=== PATIENT | female | born 2000 | race Caucasian/White ===

== ENCOUNTER → 2019-11-27 15:52 | Outpatient (BNVA) | payer SELFPAY | PROVIDERS: Family Provider Family Medicine; PCP Family Medicine; Visit Provider Nurse Practitioner Family | DX: J02.9 Acute pharyngitis, unspecified (principal); J01.40 Acute pansinusitis, unspecified; N92.6 Irregular menstruation, unspecified | CPT/HCPCS: 81025; 87081; 87880 ==

== ENCOUNTER 2020-07-05 00:03 | Emergency (ER) | payer SELFPAY ==
[2020-07-05 00:10] VITALS: BP 160/101; PULSE 91; RESP 18; TEMP 37.3; O2SAT 99; BMI 25.0
--- NOTE | 2020-07-05 00:19 | XR_ITS ---
WS: [id number] EXAM: AP CHEST: PORTABLE UPRIGHT DATE OF EXAM: 07/05/2020, 1242 hours COMPARISON: Chest x-ray from 11/23/2018 HISTORY: Patient is 20 years old with cough and fever. FINDINGS: The cardiac silhouette is normal in size. The mediastinal contours are normal. The pulmonary vas cularity is normal. The lungs are clear of infiltrate. There is no effusion or pneumothorax. No ac cruz bony abnormality is seen. XR/XR chest 1V portable [id number] IMPRESSION: No acute pulmonary disease.
--- NOTE | 2020-07-05 00:33 | ED_ITS ---
HPI - Nausea/Vomiting/Diarrhea General: Chief complaint: Nausea/Vomiting/Diarrhea Stated complaint: possible covid Time Seen by Provider: 07/05/20 00:14 History of Present Illness: HPI Narrative: 20-year-old female patient presents to the emergency department with nausea vomiting x24 hours. She reports vomiting has subsided, continues with nausea. She reports has been able to eat and drink today without vomiting. 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 She reports headache with chills, muscle aches and cough. MD elicited complaint: nausea, vomiting and abdominal pain Onset (ago): day(s) (1) Associated nausea: Yes Location of pain: Diffuse Pain consistency: intermittent (With nausea) Quality: aching Relieving factors: vomiting Context: sick contacts Associated symtoms: Reports cough, fatigue, fevers/chills, headache(s) and nausea; Denies chest pain, dysuria or palpitations Treatment prior to arrival: analgesics (Tylenol, improved headache) and NSAIDs Review of Systems General: Reports: 10 or more systems reviewed and unremarkable except in HPI and below Const: Reports: fever(s), chills, body aches and fatigue Eyes: Denies: blurry vision or eye redness ENMT: Denies: throat pain, dental pain or disequilibrium Card: Denies: chest pain, palpitations or irregular heart rhythm Resp: Reports: non-productive cough; Denies: dyspnea, productive cough or wheezing GI: Reports: abdominal pain, nausea and vomiting (Resolved) : Denies: difficulty voiding or dysuria Musc: Denies: back pain Skin/Breast: Denies: rash or pruritus Neuro: Reports: headache(s); Denies: weakness in extremities or behavioral changes Wan/Lymph: Denies: easy bruising [facility] ED PFSH: Social History (Updated 11/27/19 @ 15:36 by Annalee Zafar LPN) Smoking and tobacco status: never smoked Alcohol intake: never Female Reproductive History: Date of last menstrual period: 06/19/20 Physical Exam Const: COMMON NORMALS: patient oriented x3 and alert GENERAL APPEARANCE: cooperative, well kempt and well hydrated NUTRITIONAL APPEARANCE: obese ORIENTATION/CONSCIOUSNESS: Yes awake, Yes oriented to person and Yes oriented to place HENMT: COMMON NORMALS: normocephalic, EAC's normal, TM's normal bilaterally, Normal external nose present and moist oral mucous membranes HEAD & SCALP: normocephalic FACE & SINUS: normal facial exam NOSE: Normal external nose present EXTERNAL AUDITORY CANAL: EAC's normal TYMPANIC MEMBRANE: TM's normal bilaterally MOUTH: Normal oral and palatal mucosa present THROAT: posterior oropharynx normal Eye: COMMON NORMALS: Equal, round and reactive pupils present and EOMs intact bilaterally GENERAL EYE: appearance normal, both eyes and all related structures PUPIL: Yes Equal, round and reactive pupils present Neck/C-Spine: COMMON NORMALS: full ROM and no lymphadenopathy GENERAL: Yes normal visual inspection and Yes trachea midline CERVICAL SPINE: Yes cervical ROM normal Lymph: LYMPHATIC: no lymphadenopathy noted Chest: COMMONS NORMALS: normal inspection of the chest Resp: COMMON NORMALS: normal respiratory effort and clear to auscultation bilaterally EFFORT & INSPECTION: Yes able to speak in complete sentences AUSCULTATION: clear to auscultation bilaterally Cardio: COMMON NORMALS: regular rhythm, S1 normal heart sound present, S2 normal heart sound present and Peripheral pulses 2+ throughout RHYTHM: regular rhythm HEART SOUNDS: S1 normal heart sound present and S2 normal heart sound present PERIPHERAL PULSES: Peripheral pulses 2+ throughout GI: COMMON NORMALS: Soft to palpation INSPECTION: Yes normal to inspection PALPATION: Yes Soft to palpation and Yes Tenderness to palpation present (GI) (epigastric - mild) Details: LUQ (mild) : COMMON NORMALS: Yes no CVA tenderness BLADDER/KIDNEY EXAM: Yes no CVA tenderness Back/Pelvis: COMMON NORMALS: no CVA tenderness and thoracic and lumbar spine normal to inspection Extremity: COMMON NORMALS: normal to inspection and capillary refill normal Neuro: COMMON NORMALS: patient oriented x3 and no focal motor deficits SENSORIUM/ORIENTATION: Yes alert, Yes oriented to person and Yes oriented to place Psych: COMMON NORMALS: mental status grossly normal, Normal thought process present and cooperative APPEARANCE: Yes well kempt ACTIVITY/MOTOR BEHAVIOR: Yes appropriate eye contact THOUGHT PROCESS: Normal thought process present Skin: COMMON NORMALS: no rashes or lesions noted and turgor normal GENERAL SKIN EXAM: no rashes or lesions noted and turgor normal Course ED course: 20-year-old female patient presents to the emergency department with possible COVID infection. 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 Patient was advised COVID results will be called to her. She agrees to go home, she was counseled to return to the emergency department if she developed inability to keep fluids down, shortness of breath or difficulty breathing. She verbalized understanding. Vital Signs: Vital signs: Vital Signs Temperature 99.1 F 07/05/20 00:10 Pulse Rate 78 07/05/20 01:36 Respiratory Rate 18 07/05/20 01:36 Blood Pressure 125/78 07/05/20 01:36 Pulse Oximetry 99 07/05/20 01:36 MDM - Nausea/Vomiting/Diarrhea Imaging Data^: Other Xray: My impression: no acute process, no findings of pneumonia, radiologist inturp pending Discharge Plan Discharge Patient Disposition: Home Clinical Impression: Gastroenteritis, Flu syndrome Condition: Stable Prescriptions: New Zofran 4 mg tablet 4 mg PO QID PRN (Reason: nausea and vomiting) Qty: 14 RF: 0 Discharge Orders: Discharge Order (Routine); Ordered 07/05/20 Ordered By: Monserrat Sabillon Referrals: Javad Dsouza MD [Primary Care Provider] - Discharge Diet: Advance as tolerated and Clear Liquid Discharge Activity: Limit activity as instructed Patient Instructions: Acute Nausea and Vomiting (ED) Activity Restrictions/Additional Instructions: Take Zofran as needed for nausea and/or vomiting every 4 hours Clear liquid diet and advance as tolerated, avoid greasy, fried, fatty foods COVID testing is in process. The emergency department will contact you in regards to results. You are to stay home and quarantine for 10 days. Return to the emergency department if you develop inability to tolerate oral fluids, difficulty breathing or worsening symptoms. 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
[2020-07-05] MEDS: ondansetron 4 MG Tablet PO (01:27)
[2020-07-05 01:36] VITALS: BP 125/78; PULSE 78; RESP 18; O2SAT 99
[2020-07-07 01:32] LABS: Quest SARS-CoV-2 RNA NOT DETECTED (NOT DETECTED)
--- NOTE | 2020-07-07 08:24 | PC.NURSE ---
Pt notified of negative COVID result.
== END 2020-07-05 02:01 | disposition home or self-care (01) ==
PROVIDERS: Emergency Provider Nurse Practitioner Family; PCP Family Medicine
DX: K52.9 Noninfective gastroenteritis and colitis, unspecified (principal); J11.1 Influenza due to unidentified influenza virus with other respiratory manifestations
CPT/HCPCS: 12345; 71045; 87635; 99282; 99283; Q0162

== ENCOUNTER → 2020-11-19 16:55 | Outpatient (BNVA) | payer OTHER, SELFPAY | PROVIDERS: PCP Family Medicine; Visit Provider Emergency Medicine | DX: Z20.822 Contact with and (suspected) exposure to COVID-19 (principal) | CPT/HCPCS: 87635 ==

== ENCOUNTER 2021-02-10 01:37 | Emergency (ER) | payer SELFPAY ==
[2021-02-10 01:44] VITALS: BP 140/94; PULSE 125; RESP 15; TEMP 36.8; O2SAT 99; BMI 38.2
--- NOTE | 2021-02-10 01:54 | W.ED.ABDPA2 ---
HPI - Abdominal Pain General: Chief Complaint: Abdominal Pain Stated Complaint: N/V/ABD PAIN Time Seen by Provider: 02/10/21 01:39 History of Present Illness: HPI narrative: Patient is a 20-year-old female comes to the ED with abdominal pain, nausea and vomiting. Patient says symptoms started earlier today. Patient symptoms started first with nausea and vomiting. She has had approximately 3 episodes of emesis and started developing abdominal pain. she has not been able to keep anything down today since start of symptoms. The abdominal pain she rates currently a 6 out of 10. Its located in the left upper quadrant. She took some [id number] ibuprofen at 11 PM tonight. Denies any fever, chills, upper respiratory symptoms, constipation, diarrhea, blood in the stool, dysuria, hematuria. Patient says her last menstrual period was January 15. Denies any abdominal surgical history. Associated Symptoms: Reports nausea and vomiting; Denies chills, constipation, diarrhea, dysuria, fever(s), hematochezia and hematuria Related Data: Date of Last Menstrual Period: 01/15/21 Review of Systems Const: Denies: fever(s), chills or fatigue Eyes: Denies: change in vision or eye discomfort ENMT: Denies: throat pain, odynophagia, nasal discharge or nasal congestion Card: Denies: chest pain, palpitations, edema, swelling of feet/ankles, dyspnea on exertion or orthopnea Resp: Denies: dyspnea, productive cough or non-productive cough GI: Reports: abdominal pain, nausea and vomiting; Denies: diarrhea, constipation or hematochezia : Denies: flank pain, dysuria or hematuria Musc: Denies: neck pain, back pain or extremity swelling Skin/Breast: Denies: rash or new lesions Neuro: Denies: headache(s), numbness in extremities or weakness in extremities PFSH ED PFSH: Social History Smoking and tobacco status: never smoked Alcohol intake: never Female Reproductive History: Date of last menstrual period: 01/15/21 Physical Exam Const: COMMON NORMALS: no acute distress, patient oriented x3 and alert GENERAL APPEARANCE: cooperative and comfortable HENMT: COMMON NORMALS: normocephalic HEAD & SCALP: normocephalic MOUTH: Normal oral and palatal mucosa present THROAT: posterior oropharynx normal and uvula midline Neck/C-Spine: COMMON NORMALS: supple GENERAL: Yes normal visual inspection Resp: COMMON NORMALS: normal respiratory effort, No retractions, No use of accessory muscles and clear to auscultation bilaterally AUSCULTATION: clear to auscultation bilaterally Cardio: COMMON NORMALS: regular rate, regular rhythm, S1 normal heart sound present, S2 normal heart sound present, No gallops present (Cardio), No clicks present (Cardio), No murmurs present (Cardio) and Peripheral pulses 2+ throughout RATE: regular rate RHYTHM: regular rhythm HEART SOUNDS: S1 normal heart sound present and S2 normal heart sound present PERIPHERAL PULSES: Peripheral pulses 2+ throughout GI: COMMON NORMALS: Normal to inspection, nondistended, normoactive bowel sounds present, Soft to palpation and no masses INSPECTION: Yes central obesity PALPATION: Yes Soft to palpation and Yes Tenderness to palpation present (GI) Details: LUQ (Mild left upper quadrant tenderness-generalized. No localized/point tenderness) OTHER: No signs of an acute abdomen. : COMMON NORMALS: Yes no CVA tenderness BLADDER/KIDNEY EXAM: Yes no CVA tenderness Back/Pelvis: COMMON NORMALS: no CVA tenderness Extremity: COMMON NORMALS: normal to inspection Neuro: COMMON NORMALS: patient oriented x3 SENSORIUM/ORIENTATION: Yes alert GAIT: Yes Normal gait present Skin: GENERAL SKIN EXAM: dry skin Course Reevaluation(s): Reevaluation #1: Patient was given IV fluids and Zofran while here in the ED and her symptoms improved. She was given p.o. fluids and she was able to keep them down and had no episodes of emesis while here in the ED. Time: 02:56 Vital Signs: Vital signs: Vital Signs Temperature 98.2 F 02/10/21 01:44 Pulse Rate 125 H 02/10/21 01:44 Respiratory Rate 15 02/10/21 01:44 Blood Pressure 140/94 02/10/21 01:44 Pulse Oximetry 99 02/10/21 01:44 MDM - Abdominal Pain MDM Narrative: Medical decision making narrative: Patient is a 20-year-old female comes to the ED with abdominal pain, nausea and vomiting. Patient's abdominal pain started after the nausea and multiple episodes of emesis today. Patient says symptoms started earlier today. Exam shows a 20-year-old female that sitting comfortably on exam bed when I enter the room. She appears in no acute distress or pain. She has some mild generalized tenderness in her left upper quadrant of the abdomen. No signs of an acute abdomen. Labs were unremarkable and hCG negative. Patient was given IV fluids and Zofran and Toradol and her symptoms improved. Patient was able to keep p.o. fluids down here in the ED once nausea was controlled. Patient diagnosed with viral syndrome and discharged home with a prescription for Reglan for nausea. Advance diet slowly start with clear liquids. She was told to follow-up with her PCP in 7 to 10 days for reevaluation. Return to ED precautions given. Patient understood and agreed with plan. Lab Data: Attestation: I reviewed the patient's lab results. Labs: Lab Results 02/10/21 02/10/21 02/10/21 Range/Units 02:00 02:00 02:00 WBC 10.7 H (4.0-10.0) 10^3/ uL RBC 5.55 H (4.1-5.3) 10^6/u L Hgb 15.4 H (11.5-15.3) g/dL Hct 47.3 H (37.0-47.0) % MCV 85.2 (81-99) fL MCH 27.7 L (28.0-34.0) pg MCHC 32.6 (30.0-36.0) g/dL RDW 12.7 (12.1-15.1) % Plt Count 323 (130-400) 10^3/c mm MPV 10.2 (7.4-10.4) fL Neut % (Auto) 84.5 % Lymph % (Auto) 9.7 % Fergus % (Auto) 5.1 % Eos % (Auto) 0.3 % Baso % (Auto) 0.2 % Neut # (Auto) 9.04 H (1.8-7.7) 10^3/u L Lymph # (Auto) 1.0 (0.8-4.8) 10^3/u L Fergus # (Auto) 0.6 (0.2-0.9) 10^3/u L Eos # (Auto) 0.0 (0.0-0.8) 10^3/u L Baso # (Auto) 0.0 (0.0-0.1) 10^3/u L Nucleated RBC % (a uto) 0 % Nucleated RBCs # 0.0 /100WBC Sodium 137 (136-145) mmol/L Potassium 3.9 (3.5-5.1) mmol/L Chloride 98 (98-107) mmol/L Carbon Dioxide 29 (22-29) mmol/L Anion Gap 13.9 (5-19) BUN 11 (6-20) mg/dL Creatinine 0.7 (0.5-0.9) mg/dL GFR Calculation 105.6 (90-130) mL/min Glucose 101 (65-115) mg/dL Calculated Osmolal ity 284 L (285-295) mOsm/k g Calcium 9.0 (8.5-10.5) mg/dL Total Bilirubin 0.7 (0.15-1.2) mg/dL AST 14 (0-32) U/L ALT 11 (0-33) U/L Alkaline Phosphata se 82 (35-105) IU/L Total Protein 8.3 (6.6-8.7) g/dL Albumin 4.9 (3.5-5.2) g/dL Globulin 3.4 (1.3-4.6) g/dL Lipase 35 (13-60) U/L HCG, Qual Negative (Negative) Urine Color (Yellow) Urine Appearance (CLEAR) Urine pH (5-7) Ur Specific Gravit y (1.005-1.030) Urine Protein (Negative) Urine Glucose (UA) (Normal) Urine Ketones (Negative) Urine Blood (Negative) Urine Nitrate (Negative) Urine Bilirubin (Negative) Urine Urobilinogen (Negative) mg/dL Ur Leukocyte Ashanti ase (Negative) Urine RBC (0-2) /hpf Urine WBC (0-5) /hpf Ur Squamous Epith Cells (0-5) /hpf Amorphous Sediment Urine Bacteria (NONE) /hpf Urine Mucus /hpf 02/10/21 Range/Units 02:40 WBC (4.0-10.0) 10^3/ uL RBC (4.1-5.3) 10^6/u L Hgb (11.5-15.3) g/dL Hct (37.0-47.0) % MCV (81-99) fL MCH (28.0-34.0) pg MCHC (30.0-36.0) g/dL RDW (12.1-15.1) % Plt Count (130-400) 10^3/c mm MPV (7.4-10.4) fL Neut % (Auto) % Lymph % (Auto) % Fergus % (Auto) % Eos % (Auto) % Baso % (Auto) % Neut # (Auto) (1.8-7.7) 10^3/u L Lymph # (Auto) (0.8-4.8) 10^3/u L Fergus # (Auto) (0.2-0.9) 10^3/u L Eos # (Auto) (0.0-0.8) 10^3/u L Baso # (Auto) (0.0-0.1) 10^3/u L Nucleated RBC % (a uto) % Nucleated RBCs # /100WBC Sodium (136-145) mmol/L Potassium (3.5-5.1) mmol/L Chloride (98-107) mmol/L Carbon Dioxide (22-29) mmol/L Anion Gap (5-19) BUN (6-20) mg/dL Creatinine (0.5-0.9) mg/dL GFR Calculation (90-130) mL/min Glucose (65-115) mg/dL Calculated Osmolal ity (285-295) mOsm/k g Calcium (8.5-10.5) mg/dL Total Bilirubin (0.15-1.2) mg/dL AST (0-32) U/L ALT (0-33) U/L Alkaline Phosphata se (35-105) IU/L Total Protein (6.6-8.7) g/dL Albumin (3.5-5.2) g/dL Globulin (1.3-4.6) g/dL Lipase (13-60) U/L HCG, Qual (Negative) Urine Color Yellow (Yellow) Urine Appearance Sl hazy (CLEAR) Urine pH 5 (5-7) Ur Specific Gravit y 1.015 (1.005-1.030) Urine Protein Neg (Negative) Urine Glucose (UA) Norm (Normal) Urine Ketones Negative (Negative) Urine Blood Neg (Negative) Urine Nitrate Negative (Negative) Urine Bilirubin 2+ H (Negative) Urine Urobilinogen 1 H (Negative) mg/dL Ur Leukocyte Ashanti ase 1+ H (Negative) Urine RBC 0-4 H (0-2) /hpf Urine WBC 5-10 H (0-5) /hpf Ur Squamous Epith Cells 10-15 H (0-5) /hpf Amorphous Sediment Not Reportable Urine Bacteria 1+ H (NONE) /hpf Urine Mucus 1+ /hpf Discharge Plan Discharge Patient Disposition: Home Clinical Impression: Viral gastroenteritis Condition: Stable Prescriptions: New Reglan 10 mg tablet 10 mg PO Q6H PRN (Reason: nausea and vomiting) Qty: 20 RF: 0 No Action valacyclovir 1 gram tablet 1,000 mg PO BID 5 Days Qty: 10 RF: 0 Discharge Orders: Discharge ED (Routine); Ordered 02/10/21 Ordered By: Matheus Lincoln Referrals: Javad Dsouza MD [Primary Care Provider] - Discharge Diet: Advance as tolerated and Clear Liquid Discharge Activity: Increase activity as tolerated Patient Instructions: Clear Liquid Diet (ED), Gastroenteritis (ED), Viral Syndrome (ED) Activity Restrictions/Additional Instructions: Follow-up with medical provider as directed in 7 to 10 days for reevaluation. Take medications as prescribed. Start with clear liquid diet then advance diet slowly as tolerated. Take [id number] Tylenol or Motrin for any fevers or pain. Return to the ER or your medical provider if condition worsens. Please read and understand discharge instructions. If any questions, please ask. 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
[2021-02-10] MEDS: ondansetron 2 mg/ML SDV 2 mL 4 MG IVP (02:05)
[2021-02-10] MEDS: sodium chloride 0.9% 1,000 ML 999 ML IV (02:06)
[2021-02-10 02:24] LABS: Basophils % 0.2 %; Eosinophils % 0.3 %; Hematocrit 47.3 % (37.0-47.0); Hemoglobin 15.4 g/dL (11.5-15.3); Lymphocytes % 9.7 %; Mean Corpuscular HGB Conc 32.6 g/dL (30.0-36.0); Mean Corpuscular Hemoglobin 27.7 pg (28.0-34.0); Mean Corpuscular Volume 85.2 fL (81-99); Mean Platelet Volume 10.2 fL (7.4-10.4); Monocytes # 0.6 10^3/uL (0.2-0.9); Monocytes % 5.1 %; Neutrophils # 9.04 10^3/uL (1.8-7.7); Neutrophils % 84.5 %; Nucleated Red Blood Cells % 0 %; Platelet Count 323 10^3/cmm (130-400); Red Blood Count 5.55 10^6/uL (4.1-5.3); Red Cell Distribution Width 12.7 % (12.1-15.1); White Blood Count 10.7 10^3/uL (4.0-10.0)
[2021-02-10 02:32] LABS: HCG, Serum Qual Negative (Negative)
[2021-02-10 02:39] LABS: Alanine Aminotransferase 11 U/L (0-33); Albumin Level 4.9 g/dL (3.5-5.2); Alkaline Phosphatase 82 IU/L (35-105); Anion Gap 13.9 (5-19); Aspartate Amino Transferase 14 U/L (0-32); Blood Urea Nitrogen 11 mg/dL (6-20); Carbon Dioxide 29 mmol/L (22-29); Chloride 98 mmol/L (98-107); Creatinine Clr Calc Pharmacy 152.3881; Globulin 3.4 g/dL (1.3-4.6); Glomerular Filtration Rate 105.6 mL/min (90-130); Glucose 101 mg/dL (65-115); Lipase 35 U/L (13-60); Osmolality Calculated 284 mOsm/kg (285-295); Potassium 3.9 mmol/L (3.5-5.1); Sodium 137 mmol/L (136-145); Total Bilirubin 0.7 mg/dL (0.15-1.2); Total Protein 8.3 g/dL (6.6-8.7)
[2021-02-10 03:08] LABS: Bilirubin Urine 2+ (Negative); Blood Urine Neg (Negative); Glucose Urine UA Norm (Normal); Ketones Urine Negative (Negative); Leukocyte Esterase Urine 1+ (Negative); Nitrate Urine Negative (Negative); Protein Urine Neg (Negative); Specific Gravity, Urine 1.015 (1.005-1.030); Urine Appearance SL Hazy (CLEAR); Urine Color Yellow (Yellow); Urobilinogen Urine 1 mg/dL (Negative); pH Urine 5 (5-7)
[2021-02-10] MEDS: ketorolac 30 mg/mL INJ IVP (03:08)
[2021-02-10 03:09] LABS: Bacteria Urine 1+ /hpf; Mucus Urine 1+ /hpf; RBC Urine 0-4 /hpf (0-2)
[2021-02-10 03:10] LABS: Add Urine Culture? No
[2021-02-10] MEDS: metoclopramide 5 mg/mL SDV 2 mL 10 MG IVP (03:21)
[2021-02-10 03:31] VITALS: BP 123/84; PULSE 104; O2SAT 99
== END 2021-02-10 03:31 | disposition home or self-care (01) ==
PROVIDERS: Emergency Provider Physician Assistant; PCP Family Medicine
DX: A08.4 Viral intestinal infection, unspecified (principal)
CPT/HCPCS: 80053; 81001; 83690; 84703; 85025; 96361; 96374; 96375; 99284; J1885; J2405; J2765; J7030

== ENCOUNTER → 2022-09-18 13:37 | Outpatient (BNVA) | payer OTHER, SELFPAY | PROVIDERS: PCP Family Medicine; Visit Provider Family Medicine | DX: Z34.90 Encounter for supervision of normal pregnancy, unspecified, unspecified trimester (principal); R30.0 Dysuria | CPT/HCPCS: 80307; 81000; 81025; 85025; 86850; 86900; 87086; 87491; 87591; 87624 ==

== ENCOUNTER 2022-09-19 11:07 | Outpatient (CLI) | payer OTHER, MEDICAID, SELFPAY ==
[2022-09-19 11:48] LABS: Basophils % 0.4 %; Eosinophils # 0.1 10^3/uL (0.0-0.8); Eosinophils % 0.5 %; Hematocrit 40.4 % (37.0-47.0); Hemoglobin 12.9 g/dL (11.5-15.3); Lymphocytes # 1.9 10^3/uL (0.8-4.8); Lymphocytes % 17.8 %; Mean Corpuscular HGB Conc 31.9 g/dL (30.0-36.0); Mean Corpuscular Volume 87.6 fl (81-99); Mean Platelet Volume 10.2 fL (7.4-10.4); Monocytes # 0.7 10^3/uL (0.2-0.9); Monocytes % 6.4 %; Neutrophils # 7.98 10^3/uL (1.8-7.7); Neutrophils % 74.5 %; Nucleated Red Blood Cells % 0 %; Platelet Count 336 10^3/cmm (130-400); Red Blood Count 4.61 10^6/uL (4.1-5.3); Red Cell Distribution Width 13.8 % (12.1-15.1); White Blood Count 10.7 10^3/uL (4.0-10.0)
[2022-09-19 12:16] LABS: HIV 1 & 2 Antibody Non-Reactive (Non-Reactiv); HIV 1 & 2 Antigen Non-Reactive (Non-Reactiv); Rubella IgG 5.2 IU/mL (0.0-10.0); Thyroid Stimulating Hormone 1.62 uIU/mL (0.27-4.20)
[2022-09-19 12:20] LABS: Rapid Plasma Reagin Syphilis Nonreactive (Nonreactive)
[2022-09-19 12:26] LABS: Hepatitis B Surface Antigen Non-Reactive (Nonreactive); Hepatitis C Virus Antibody Non-Reactive (Nonreactive)
[2022-09-19 13:18] LABS: Progesterone 6.92 ng/mL
== END 2022-09-19 11:08 | disposition home or self-care (01) ==
LOC: LAB 11:11
PROVIDERS: PCP Family Medicine; Visit Provider Family Medicine
DX: Z34.90 Encounter for supervision of normal pregnancy, unspecified, unspecified trimester (principal)
CPT/HCPCS: 36415; 84144; 84443; 84702; 85025; 86592; 86762; 86803; 86850; 86900; 87340; 87806

== ENCOUNTER 2022-09-25 11:32 | Outpatient (CLI) | payer OTHER, MEDICAID, SELFPAY | END 2022-09-25 11:33 | disposition home or self-care (01) | PROVIDERS: PCP Family Medicine; Visit Provider Family Medicine | DX: Z34.00 Encounter for supervision of normal first pregnancy, unspecified trimester (principal) | CPT/HCPCS: 84144; 84702 ==

== ENCOUNTER 2022-10-03 09:59 | Outpatient (CLI) | payer OTHER, MEDICAID, SELFPAY ==
--- NOTE | 2022-10-03 10:15 | USR_ITS ---
PROCEDURE INFORMATION: Exam: US First Trimester, Transabdominal and US , Transvaginal Exam date and time: 10/03/2022 10:10 AM Age: 22 years old Clinical indication: Screening exam; Routine US, uterus; Additional info: Dating US LABS AND CLINICAL REPORTS: Last menstrual period start date: 07/28/2022 Gestational age (Established): 9 w 4 d Estimated due date (Established): 05/04/2023 TECHNIQUE: Imaging protocol: Real-time transabdominal obstetrical ultrasound of the maternal pelvis and a first trimester , less than 14 weeks 0 days, with image documentation. Transvaginal imaging was used for better evaluation of the fetus, adnexa, and/or cervix. COMPARISON: CT abdomen pelvis w con* [id number] 10/03/2018 7:10 AM FINDINGS: Gestation: Single intrauterine gestation identified. Yolk sac noted, measuring 0.5 cm. Embryonic/ heart rate: Not identified. Extra-embryonic membranes/Placenta: Unremarkable. No subchorionic bleed. Amniotic fluid: Amniotic fluid and extra-amniotic fluid is normal for gestational age. BIOMETRY: Gestational age (AUA): 6 w 6 d Mean sac diameter: 1.5 cm. EGA (MSD) is 7 w 3 d Dunlap-Rump length (CRL): 4.4 mm. EGA (CRL) is 6 w 1 d MATERNAL: Uterus: Unremarkable. Cervix: Unremarkable. Right ovary/adnexa: Unremarkable ovary. Left ovary/adnexa: Unremarkable ovary. Intraperitoneal space: No intraperitoneal free fluid. US/US OB <= 14 weeks fetus [id number] IMPRESSION: Single intrauterine gestation. No heart rate identified, likely secondary to early . Correlation with serial beta hCG and interval follow-up with pelvic ultrasound is recommended.
== END 2022-10-03 10:00 | disposition home or self-care (01) ==
LOC: RAD 10:01
PROVIDERS: PCP Family Medicine; Visit Provider Family Medicine
DX: Z34.00 Encounter for supervision of normal first pregnancy, unspecified trimester (principal); Z3A.01 Less than 8 weeks gestation of pregnancy
CPT/HCPCS: 76801; 84144; 84702

== ENCOUNTER 2022-10-19 13:32 | Outpatient (CLI) | payer OTHER, MEDICAID, SELFPAY ==
--- NOTE | 2022-10-19 13:45 | US_ITS ---
WS: [id number] EARLY OBSTETRICAL ULTRASOUND (<14 WEEKS). HISTORY: Follow up - no HR noted - low progesterone COMPARISON: 10/03/2022 Elongated gestational sac. Sac has changed shape and size since the prior study. No pole or car diac activity. No yolk sac identified. Small amount of fluid along the cervical canal. LEFT ovary is not identified. The RIGHT ovary is poorly visualized but normal otherwise. No free flui d. US/US OB <= 14 weeks fetus [id number] IMPRESSION: 1. Empty gestational sac. No pole or cardiac activity identified. 2. Abnormal shape of the gestational sac. Anembryonic gestation likely.
== END 2022-10-19 13:33 | disposition home or self-care (01) ==
LOC: RAD 13:34
PROVIDERS: PCP Family Medicine; Visit Provider Family Medicine
DX: O36.8390 Maternal care for abnormalities of the fetal heart rate or rhythm, unspecified trimester, not applicable or unspecified (principal)
CPT/HCPCS: 76801

== ENCOUNTER → 2022-10-23 12:55 | Outpatient (BNVA) | payer BC, SELFPAY | PROVIDERS: PCP Family Medicine; Visit Provider Family Medicine | DX: O03.9 Complete or unspecified spontaneous abortion without complication (principal) | CPT/HCPCS: 84702 ==

== ENCOUNTER 2022-10-24 14:38 | Outpatient (REF) | payer BC, SELFPAY ==
[2022-10-24 15:19] LABS: Rubella IgG 6.6 IU/mL (0.0-10.0)
[2022-10-24 15:20] LABS: Hepatitis B Surface AB 3.5 (11.5-1000)
[2022-10-26 20:05] LABS: Quantiferon Mitogen >10.00 IU/mL; Quantiferon Nil 0.02 IU/mL; Quantiferon Plus TB1 <0.00 IU/mL; Quantiferon Plus TB2 <0.00 IU/mL; Quantiferon TB Gold NEGATIVE (NEGATIVE)
== END 2022-10-24 14:39 | disposition home or self-care (01) ==
LOC: LAB 14:38
PROVIDERS: PCP Family Medicine; Visit Provider Dermatology
DX: Z01.89 Encounter for other specified special examinations (principal)
CPT/HCPCS: 86480; 86706; 86735; 86762; 86765; 86787

== ENCOUNTER → 2024-03-26 11:30 | Outpatient (BNVA) | payer BC, MEDICAID, SELFPAY | PROVIDERS: PCP Family Medicine; Visit Provider Registered Nurse Neonatal Intensive Care | DX: J02.9 Acute pharyngitis, unspecified (principal); J06.9 Acute upper respiratory infection, unspecified | CPT/HCPCS: 87880 ==